=== PATIENT | male | born 1970 | race Caucasian/White ===

== ENCOUNTER 2016-10-17 09:51 | Emergency (ER) | payer MEDICAID ==
--- NOTE | 2016-10-17 10:18 | ED Physician Chart ---
Chief Complaint/HPI - Patient Information Date Seen:: 10/17/16 Time Seen:: 10:00 Chief Complaint:: anxiety History of Present Illness:: [place] He complains of anxiety. Patient's been homeless for the last 2 weeks. He states he was in a psych facility about one month ago. He does not remember the name of the psychiatric facility or for how long he was admitted. Patient does not want to hurt himself or anyone else. Historian:: Patient, EMS Review:: Nurse's Note Reviewed <Froy Schreiber - Last Filed: 10/17/16 17:33> - Patient Information Allergies:: Allergies Allergy/AdvReac Type Severity Reaction Status Date / Time No Known Allergies Allergy Verified 10/17/16 10:19 Vitals:: Vital Signs - 8 hr 10/18/16 07:42 Temp 97.8 F HR 73 RR 15 BP 99/63 O2 Sat % 98 <Rubio Michelle - Last Filed: 10/19/16 06:52> - Patient Information Date Seen:: 10/19/16 Allergies:: Allergies Allergy/AdvReac Type Severity Reaction Status Date / Time No Known Allergies Allergy Verified 10/17/16 10:19 Vitals:: Vital Signs - 8 hr 10/19/16 18:12 Temp 98.1 F HR 74 RR 16 BP 127/63 O2 Sat % 98 <Abner Butler - Last Filed: 10/19/16 22:21> Review of Systems - Review of Systems General/Constitutional: No fever, No chills Skin: No skin lesions Head: No headache Eyes: No loss of vision ENT: No earache Neck: No neck pain Cardio Vascular: No chest pain, No palpitations Pulmonary: No SOB, No cough GI: No nausea, No vomiting G/U: No dysuria Musculoskeletal: No bone or joint pain Endocrine: No polyuria, No polydipsia Psychiatric: Prior psych history, Depression, Anxiety, No suicidal ideation Hematopoietic: No bruising, No lymphadenopathy Allergic/Immuno: No urticaria, No angioedema Neurological: No syncope, No focal symptoms, No weakness <Froy Schreiber - Last Filed: 10/17/16 17:33> Past Medical History - Past Medical History Past Medical History: Other (psychiatric) Family History: None Social History: Smoker, Alcohol, Illicit Drug Use, Other (Crystal meth) Surgical History: None Psychiatricy History: Depression, Schizophrenia, Bipolar, Other (anxiety) Medication: None <Froy Schreiber - Last Filed: 10/17/16 17:33> Family Medical History - Family Member Mother History Unknown: Yes <Froy Schreiber - Last Filed: 10/17/16 17:33> Labs/Radiology/EKG Results - Lab Results Results: Laboratory Results - last 24 hr 10/17/16 10/17/16 10/17/16 10:30 10:30 10:45 WBC 7.7 RBC 4.97 Hgb 15.5 Hct 45.9 MCV 92.3 MCH 31.2 H MCHC Differential 33.8 RDW 14.3 Plt Count 249 MPV 7.5 Neutrophils % 67.3 Lymphocytes % 19.7 L Monocytes % 11.0 H Eosinophils % 2.0 Basophils % 0.0 Sodium 136 Potassium 3.7 Chloride 103 Carbon Dioxide 25.7 Anion Gap 11.0 BUN 14 Creatinine 0.7 Est GFR ( Amer) > 60.0 Est GFR (Non-Af Amer) > 60.0 BUN/Creatinine Ratio 20.0 Glucose 88 Calcium 9.9 Urine Opiates Screen NEGATIVE Urine Methadone Screen NEGATIVE Acetaminophen < 10.0 L Ur Barbiturates Screen NEGATIVE Ur Tricyclics Screen NEGATIVE Ur Phencyclidine Scrn NEGATIVE Amphetamines Screen POSITIVE H U Methamphetamines Scrn POSITIVE H U Benzodiazepines Scrn NEGATIVE U Cocaine Metab Screen NEGATIVE U Cannabinoids Screen NEGATIVE Ethyl Alcohol < 10 <Froy Schreiber - Last Filed: 10/17/16 17:33> - Lab Results Results: Laboratory Tests 10/17/16 10/17/16 10/17/16 10:30 10:30 10:45 WBC 7.7 RBC 4.97 Hgb 15.5 Hct 45.9 MCV 92.3 MCH 31.2 H MCHC Differential 33.8 RDW 14.3 Plt Count 249 MPV 7.5 Neutrophils % 67.3 Lymphocytes % 19.7 L Monocytes % 11.0 H Eosinophils % 2.0 Basophils % 0.0 Sodium 136 Potassium 3.7 Chloride 103 Carbon Dioxide 25.7 Anion Gap 11.0 BUN 14 Creatinine 0.7 Est GFR ( Amer) > 60.0 Est GFR (Non-Af Amer) > 60.0 BUN/Creatinine Ratio 20.0 Glucose 88 Calcium 9.9 Salicylates < 25.0 L Urine Opiates Screen NEGATIVE Urine Methadone Screen NEGATIVE Acetaminophen < 10.0 L Ur Barbiturates Screen NEGATIVE Ur Tricyclics Screen NEGATIVE Ur Phencyclidine Scrn NEGATIVE Amphetamines Screen POSITIVE H U Methamphetamines Scrn POSITIVE H U Benzodiazepines Scrn NEGATIVE U Cocaine Metab Screen NEGATIVE U Cannabinoids Screen NEGATIVE Ethyl Alcohol < 10 <Rubio Michelle - Last Filed: 10/19/16 06:52> - Lab Results Results: Laboratory Tests 10/17/16 10/17/16 10/17/16 10:30 10:30 10:45 WBC 7.7 RBC 4.97 Hgb 15.5 Hct 45.9 MCV 92.3 MCH 31.2 H MCHC Differential 33.8 RDW 14.3 Plt Count 249 MPV 7.5 Neutrophils % 67.3 Lymphocytes % 19.7 L Monocytes % 11.0 H Eosinophils % 2.0 Basophils % 0.0 Sodium 136 Potassium 3.7 Chloride 103 Carbon Dioxide 25.7 Anion Gap 11.0 BUN 14 Creatinine 0.7 Est GFR ( Amer) > 60.0 Est GFR (Non-Af Amer) > 60.0 BUN/Creatinine Ratio 20.0 Glucose 88 Calcium 9.9 Salicylates < 25.0 L Urine Opiates Screen NEGATIVE Urine Methadone Screen NEGATIVE Acetaminophen < 10.0 L Ur Barbiturates Screen NEGATIVE Ur Tricyclics Screen NEGATIVE Ur Phencyclidine Scrn NEGATIVE Amphetamines Screen POSITIVE H U Methamphetamines Scrn POSITIVE H U Benzodiazepines Scrn NEGATIVE U Cocaine Metab Screen NEGATIVE U Cannabinoids Screen NEGATIVE Ethyl Alcohol < 10 <Abner Butler - Last Filed: 10/19/16 22:21> Assessment - Assessment General Assessment: After initially saying he did not want to hurt himself or anyone else he expressed suicidal ideation. <Froy Schreiber - Last Filed: 10/17/16 17:33> ED Septic Shock - . Is Septic Shock (SBP<90, OR Lactate>4 mmol\L) present?: No - <6hrs of presentation: Vital Signs: Vital Signs - 8 hr 10/18/16 07:42 Temp 97.8 F HR 73 RR 15 BP 99/63 O2 Sat % 98 <Rubio Michelle - Last Filed: 10/19/16 06:52> - <6hrs of presentation: Vital Signs: Vital Signs - 8 hr 10/19/16 18:12 Temp 98.1 F HR 74 RR 16 BP 127/63 O2 Sat % 98 <Abner Butler - Last Filed: 10/19/16 22:21> Reassessment (Disposition) - Reassessment Reassessment Condition:: Unchanged - Diagnosis Diagnosis:: Illicit drug use; suicidal ideation; medically stable <Froy Schreiber - Last Filed: 10/17/16 17:33> - Aftercare/Follow up Instructions Aftercare/Follow-Up Instructions:: Counseled pt regarding lab results/diagnosis & need follow up, Refer to Discharge Instructions, Counseled pt & family regarding lab results/diagnosis & need follow up (THE PSYCH DOCTOR GAVE THE PATIENT SOME SEDATION AND STATED THAT HE SHOULD BE TRANSFERED BUT HE WAS FREE TO LEAVE IF HE WISH TO.) Medication Prescribed:: DR. SUAZO WILL CARE FOR THE PATIENT STARTING AT 0700 HRS THIS AM. <Rubio Michelle - Last Filed: 10/19/16 06:52> - Reassessment Reassessment:: This patient was under the influence of methamphetamines. Initially was quite uncooperative. I have started my shift at 7 PM this evening. Patient has been extremely cooperative. Has been evaluated by psychiatry and mental health multiple times. The patient currently denies any suicidal ideation. He is alert and oriented 4. He said that most likely this was the influence of methamphetamines. There is no reason this patient needs to be held in the emergency room anymore. He is ambulating without any gait abnormalities he is cooperative. Alert and Oriented 4. He denies any suicidal ideations at all. No suicidal thoughts. No homicidal thoughts. At this point we are discharging the patient from the emergency department. Recommended follow-up with primary care 1-2 days. Return to ER precautions were given. The patient says he understands and agrees with the plan. 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
[2016-10-17 10:42] LABS: % LYMPHOCYTES 19.7 % (20.0-50.0); % NEUTROPHILS 67.3 % (40.0-80.0); HEMATOCRIT 45.9 % (39.0-49.0); HEMOGLOBIN 15.5 gm/dL (13.2-17.3); MEAN CELL VOLUME 92.3 fl (80-99); MEAN CORPUSCULAR HEMOGLOBIN 31.2 pg (26.0-30.0); MEAN CORPUSCULAR HGB CONC 33.8 pg (28.0-36.0); MEAN PLATELET VOLUME 7.5 fl; NEUTROPHILE ABSOLUTE 5.2 Th/cmm (1.8-8.0); PLATELET COUNT 249 Th/cmm (150-400); RED BLOOD COUNT 4.97 Mil/cmm (4.30-5.70); RED CELL DISTRIBUTION WIDTH 14.3 % (11.5-20.0); WHITE BLOOD COUNT 7.7 Th/cmm (4.8-10.8)
[2016-10-17 10:56] LABS: ACETAMINOPHEN < 10.0 ug/mL (10.0-30.0); BUN - UREA NITROGEN 14 mg/dL (7-25); CALCIUM SERUM 9.9 mg/dL (8.6-10.3); CARBON DIOXIDE 25.7 mEq/L (21.0-31.0); CHLORIDE 103 mEq/L (98-107); CREATININE - SERUM 0.7 mg/dL (0.7-1.3); GLUCOSE 88 mg/dL (70-105); POTASSIUM SERUM 3.7 mEq/L (3.5-5.1); SODIUM SERUM 136 mEq/L (136-145)
[2016-10-17 11:37] LABS: AMPHETAMINE URINE POSITIVE (NEGATIVE); BARBITURATES URINE NEGATIVE (NEGATIVE); METHADONE URINE NEGATIVE (NEGATIVE)
[2016-10-18] MEDS ORDERED: Haloperidol Lactate 5 mg/mL 1mL Vial IM STA (10:26)
[2016-10-18] MEDS ORDERED: Haloperidol Lactate 5 mg/mL 1mL Vial ONE (10:33)
--- NOTE | 2016-10-18 10:47 | History & Physical ---
ADMIT DATE: 10/18/2016 PHYSICIAN REQUESTING CONSULTATION: Dr. Froy Schreiber. REASON FOR CONSULTATION: Agitated behavior. HISTORY OF PRESENT ILLNESS: This patient is a 46-year-old male living by himself. Information obtained directly interviewing the patient as well as reviewing the admission papers. The patient is stating that he is feeling anxious and depressed and needs to go to a psychiatric hospital. Even as I am trying to talk to him and then trying to see if they can help him to get into a psychiatric facility, the patient has taken the rigging supervisor out and has been trying to burn self and the patient with great difficulty has been encouraged to put the rigging supervisor down, but the patient is not willing to give the rigging supervisor up. The patient's insight and judgment at this time are very much impaired. Impulse control seems to be poor and in view of his agitation, we have to give the patient 5/150, 5 of Haldol; 1 of Ativan; 50 mg of the Benadryl that was ordered. I am not able to get much of information from the patient, but the patient has been getting aggressive and agitated. PAST PSYCHIATRIC HISTORY: Details are not known. MEDICAL HISTORY: Denies major medical problems. SOCIAL HISTORY: The patient is stating that he has lot going on. Urine drug screen is noted to be pending at this time. MENTAL EXAMINATION: The patient is a 46-year-old, looking his stated age, superficially cooperative. Eye contact is poor. Mood is noted to be irritable. Affect is constricted. Insight and judgment are very much impaired. Impulse control seems to be poor. The patient is aggressive and has been resorting to self-abusive behavior. The patient is stating that he needs to be 51/50 and has to be in a psychiatric hospital. The patient is not back and down at this time. DIAGNOSTIC IMPRESSION: 1. Psychotic disorder, not otherwise specified. 2. Depressive disorder, not otherwise specified, rule out substance abuse. PLAN: To give the patient Haldol 5, Benadryl 50, and Ativan 1 and encouraged the patient to comply with the treatment. explosives worker is going to be requested to consult the patient when bed is available. JOB# [id number]
--- NOTE | 2016-10-19 07:25 | ED Physician Chart ---
Chief Complaint/HPI - Patient Information Date Seen:: 10/19/16 Time Seen:: 07:16 Allergies:: Allergies Allergy/AdvReac Type Severity Reaction Status Date / Time No Known Allergies Allergy Verified 10/17/16 10:19 Vitals:: Vital Signs - 8 hr 10/19/16 06:56 Temp 98.4 F HR 67 RR 18 BP 109/73 O2 Sat % 97 Family Medical History - Family Member Mother History Unknown: Yes Labs/Radiology/EKG Results - Lab Results Results: Laboratory Tests 10/17/16 10/17/16 10/17/16 10:30 10:30 10:45 WBC 7.7 RBC 4.97 Hgb 15.5 Hct 45.9 MCV 92.3 MCH 31.2 H MCHC Differential 33.8 RDW 14.3 Plt Count 249 MPV 7.5 Neutrophils % 67.3 Lymphocytes % 19.7 L Monocytes % 11.0 H Eosinophils % 2.0 Basophils % 0.0 Sodium 136 Potassium 3.7 Chloride 103 Carbon Dioxide 25.7 Anion Gap 11.0 BUN 14 Creatinine 0.7 Est GFR ( Amer) > 60.0 Est GFR (Non-Af Amer) > 60.0 BUN/Creatinine Ratio 20.0 Glucose 88 Calcium 9.9 Salicylates < 25.0 L Urine Opiates Screen NEGATIVE Urine Methadone Screen NEGATIVE Acetaminophen < 10.0 L Ur Barbiturates Screen NEGATIVE Ur Tricyclics Screen NEGATIVE Ur Phencyclidine Scrn NEGATIVE Amphetamines Screen POSITIVE H U Methamphetamines Scrn POSITIVE H U Benzodiazepines Scrn NEGATIVE U Cocaine Metab Screen NEGATIVE U Cannabinoids Screen NEGATIVE Ethyl Alcohol < 10 Assessment - Assessment General Assessment: THIS 46 YEAR OLD MALE IS AWAITING PLACEMENT FOR DEPRESSION AND ANXIETY. HE HAS BEEN EVALUATED BY PSYCH AND IS NOT ON A 5150. NO ACUTE DISTRESS. HEART REG WITH OUT MURMURS OR GALLOPS. LUNGS CLEAR. HAS ANXIETY AND 1 MG ATIVAN AND 50 MG BENADRYL ORDERED. ED Septic Shock - <6hrs of presentation: Vital Signs: Vital Signs - 8 hr 10/19/16 06:56 Temp 98.4 F HR 67 RR 18 BP 109/73 O2 Sat % 97
== END 2016-10-19 23:40 | disposition home or self-care (01) ==
LOC: ER 09:51
DX: F23 Brief psychotic disorder (principal); F15.90 Other stimulant use, unspecified, uncomplicated; F31.9 Bipolar disorder, unspecified; F17.200 Nicotine dependence, unspecified, uncomplicated
CPT/HCPCS: 99284; 96372 ×3; 36415; 80307; 85025; 80329 ×2; 80320; 80048; J2060; J1200; J1630; Z7502; Z7610